=== PATIENT | female | born 1990 | race Caucasian/White ===

== ENCOUNTER 2018-02-13 13:39 | Emergency (ER) | payer OTHER ==
[~2018-02-13] VITALS: Ht 165.1 cm; Wt 59.0 kg
[2018-02-13 13:40] VITALS: BP_SYST 118
[2018-02-13] MEDS ORDERED: ONDANSETRON 4 MG ODT TAB PO ONE (14:30)
[2018-02-13] MEDS ORDERED: ACETAMINOPHEN 500 MG TABLET PO ONE (14:30)
[2018-02-13 14:49] VITALS: BP_SYST 118
== END 2018-02-13 14:49 | disposition home or self-care (01) ==
LOC: SED 13:39
DX: S00.83XA Contusion of other part of head, initial encounter (principal); R03.0 Elevated blood-pressure reading, without diagnosis of hypertension; W22.8XXA Striking against or struck by other objects, initial encounter; Y93.01 Activity, walking, marching and hiking; Y92.89 Other specified places as the place of occurrence of the external cause; Y99.8 Other external cause status
CPT/HCPCS: 99283; Q0162

== ENCOUNTER 2020-03-19 09:43 | Emergency (ER) | payer OTHER ==
[~2020-03-19] VITALS: Ht 165.1 cm; Wt 59.9 kg
[2020-03-19 09:55] VITALS: BP_SYST 117
[2020-03-19 10:44] LABS: BASOPHILS # (AUTO) 0.1 K/uL (0.0-0.2); EOSINOPHILS # (AUTO) 0.3 K/uL (0.0-0.4); EOSINOPHILS % (AUTO) 4.2 % (0.0-4.0); HEMATOCRIT 37.4 % (36-48); HEMOGLOBIN 12.7 g/dL (12.0-16.0); LYMPHOCYTES # (AUTO) 1.9 K/uL (1.0-5.5); LYMPHOCYTES % (AUTO) 27.1 % (20.5-51.5); MEAN CORPUSCULAR HEMOGLOBIN 32 pg (27-31); MEAN CORPUSCULAR HGB CONC 34 % (32-36); MEAN CORPUSCULAR VOLUME 96 fL (79.0-98.0); MONOCYTES # (AUTO) 0.5 K/uL (0.0-1.0); MONOCYTES % (AUTO) 7.2 % (1.7-9.3); NEUTROPHILS # (AUTO) 4.3 K/uL (1.8-7.7); NEUTROPHILS % (AUTO) 60.5 % (40.0-70.0); PLATELET COUNT (AUTO) 336 K/uL (130-430); RED BLOOD CELL COUNT(AUTO) 3.91 MIL/uL (4.2-6.2); RED CELL DISTRIBUTION WIDTH 12.9 % (9.0-15.0); WHITE BLOOD COUNT (AUTO) 7.1 K/uL (4.8-10.8)
[2020-03-19] MEDS ORDERED: IOHEXOL 350 mgI/mL, 150 ML INFUS..BTL IV ONE (10:53)
[2020-03-19] MEDS ORDERED: GADOBENATE DIMEGLUMINE 529 MG/ML, 15 ML VIAL IV ONE (10:53)
[2020-03-19 11:18] LABS: CALCIUM 8.1 mg/dL (8.4-11.0); CREATININE 0.66 mg/dL (0.55-1.30); POTASSIUM 3.8 mmol/L (3.5-5.1)
[2020-03-19 11:32] LABS: TOTAL BILIRUBIN 0.4 mg/dL (0.0-1.0)
[2020-03-19 11:33] LABS: ALBUMIN 3.6 g/dL (3.4-4.8)
== END 2020-03-19 12:10 | disposition home or self-care (01) ==
LOC: SED 09:43
DX: F41.9 Anxiety disorder, unspecified (principal); R07.89 Other chest pain
CPT/HCPCS: 36415; 71045; 71275; 80053; 81002; 81025; 82550; 84484; 85025; 85379; 99285; A9577; Q9967

== ENCOUNTER 2020-09-21 10:25 | Emergency (ER) | payer OTHER ==
[~2020-09-21] VITALS: Ht 165.1 cm; Wt 60.3 kg
[2020-09-21 10:36] VITALS: BP_SYST 110
[2020-09-21 11:22] LABS: BASOPHILS # (AUTO) 0.1 K/uL (0.0-0.2); BASOPHILS % (AUTO) 1.1 % (0.0-2.0); EOSINOPHILS # (AUTO) 0.3 K/uL (0.0-0.4); EOSINOPHILS % (AUTO) 5.9 % (0.0-4.0); HEMATOCRIT 40.7 % (36-48); HEMOGLOBIN 14.4 g/dL (12.0-16.0); LYMPHOCYTES # (AUTO) 1.4 K/uL (1.0-5.5); LYMPHOCYTES % (AUTO) 30.3 % (20.5-51.5); MEAN CORPUSCULAR HEMOGLOBIN 34 pg (27-31); MEAN CORPUSCULAR HGB CONC 35 % (32-36); MEAN CORPUSCULAR VOLUME 97 fL (79.0-98.0); MONOCYTES # (AUTO) 0.4 K/uL (0.0-1.0); MONOCYTES % (AUTO) 8.7 % (1.7-9.3); NEUTROPHILS # (AUTO) 2.6 K/uL (1.8-7.7); PLATELET COUNT (AUTO) 280 K/uL (130-430); RED BLOOD CELL COUNT(AUTO) 4.21 MIL/uL (4.2-6.2); RED CELL DISTRIBUTION WIDTH 13.7 % (9.0-15.0); WHITE BLOOD COUNT (AUTO) 4.7 K/uL (4.8-10.8)
[2020-09-21 11:43] LABS: CALCIUM 9.1 mg/dL (8.4-11.0); CREATININE 0.65 mg/dL (0.55-1.30); POTASSIUM 3.8 mmol/L (3.5-5.1)
[2020-09-21 11:46] LABS: PROTHROMBIN TIME 10.5 SECS (9.5-12.5)
[2020-09-21 11:50] LABS: TOTAL BILIRUBIN 0.4 mg/dL (0.0-1.0)
[2020-09-21 13:28] VITALS: BP_SYST 112
== END 2020-09-21 13:28 | disposition home or self-care (01) ==
LOC: SED 10:25
DX: R04.2 Hemoptysis (principal); F41.9 Anxiety disorder, unspecified
CPT/HCPCS: 36415; 80053; 81002; 81025; 82150-TC; 83605; 83615-TC; 83690-TC; 84703; 85025; 85610-TC; 85730-TC; 99284